=== PATIENT | male | born 1955 | race Caucasian/White ===

== ENCOUNTER 2019-02-24 09:50 | Inpatient (IN) | payer MEDICARE ==
[2019-02-24] VITALS (34 sets, daily range): BP systolic 89–213; BP diastolic 59–115
[~2019-02-24] VITALS: Ht 177.8 cm; Wt 75.3 kg
--- NOTE | ~2019-02-24 | PROC ---
[address] [address] PROCEDURE REPORT Name: YOON FAUST Room: [address] IN .R.#: [id number] Admission: 02/24/19 Attend Phys: Flor Bailey Discharge: 02/26/19 Date of : 53 Report #: [id number] THIS REPORT FOR: //name// For GI report, please see the Provation report in Perceptive 7 content. By: 1546Medical Records Staff DINA /AMY
[~2019-02-24 09:50] MED LIST: CARDIZEM30 MG; DOXYCYCLINE 10100 MG PO; KEFLEX500 MG PO; NORCO 5-325 TA1 EACH PO
[2019-02-24 12:05] LABS: ABSOLUTE EOSINOPHILS 0.2 thou/uL (0.0-0.7); ABSOLUTE LYMPHOCYTES 1.6 thou/uL (0.8-5.3); ABSOLUTE MONOCYTES 0.6 thou/uL (0.0-1.2); BASOPHILS 0.3 %; EOSINOPHILS 3.3 %; HEMATOCRIT 38.8 % (42.0-52.0); MCH 26.4 pg (26.0-34.0); MCHC 33.4 g/dL (28.0-37.0); MCV 79.3 fL (80.0-100.0); MONOCYTES 7.7 %; NUCLEATED RBCS 0 /100WBC; PLATELET COUNT* 196 thou/uL (150-400); POLYS 67.7 %; WBC 7.4 thou/uL (4.0-11.0)
[2019-02-24 12:15] LABS: APTT 34.5 Seconds (25.0-31.3); INR 1.1; PROTIME 10.9 Seconds (9.20-11.50)
[2019-02-24 12:24] LABS: CREATININE 0.8 mg/dL (0.6-1.3); POTASSIUM 3.8 mmol/L (3.5-5.1)
[2019-02-24 12:34] LABS: ALBUMIN 3.3 g/dL (3.4-5.0); TOTAL BILIRUBIN 0.5 mg/dL (<0.1-1.0); TROPONIN-I LEVEL 0.1 ng/mL (<0.06)
--- NOTE | 2019-02-24 17:25 | EKG ---
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
[2019-02-25] VITALS (22 sets, daily range): BP systolic 87–114; BP diastolic 56–77
[2019-02-25 04:38] LABS: CHOLESTEROL 145 mg/dL (<200); HDL CHOLESTEROL 34 mg/dL (>40); LDL CHOLESTEROL 102 mg/dL (<100); TC:HDL 4.3 Ratio (Not establshd); TRIGLYCERIDE 49 mg/dL (<150); VLDL 10 mg/dL (<40)
[2019-02-25 04:41] LABS: SERUM ASSESSMENT CLEAR; TROPONIN-I LEVEL 4.92 ng/mL (<0.06)
[2019-02-25 07:48] LABS: ABSOLUTE EOSINOPHILS 0.3 thou/uL (0.0-0.7); ABSOLUTE LYMPHOCYTES 1.1 thou/uL (0.8-5.3); ABSOLUTE MONOCYTES 0.6 thou/uL (0.0-1.2); ABSOLUTE NEUTROPHILS 7.1 thou/uL (1.6-8.1); BASOPHILS 0.5 %; EOSINOPHILS 3.7 %; HEMATOCRIT 33.8 % (42.0-52.0); HEMOGLOBIN 11.2 gm/dL (14.0-18.0); LYMPHOCYTES 11.5 %; MCH 26.4 pg (26.0-34.0); MCHC 33.3 g/dL (28.0-37.0); MCV 79.5 fL (80.0-100.0); MONOCYTES 6.7 %; MPV 9.2 fl. (7.2-11.1); NUCLEATED RBCS 0 /100WBC; PLATELET COUNT* 209 thou/uL (150-400); POLYS 77.6 %; RBC 4.25 mil/uL (4.50-6.00); RDW-CV 15.9 % (10.5-14.5); WBC 9.1 thou/uL (4.0-11.0)
[2019-02-25 07:56] LABS: ALBUMIN 2.4 g/dL (3.4-5.0); CALCIUM 8.4 mg/dL (8.5-10.1); CREATININE 0.7 mg/dL (0.6-1.3); POTASSIUM 3.8 mmol/L (3.5-5.1); TOTAL BILIRUBIN 0.3 mg/dL (<0.1-1.0); TOTAL PROTEIN 6.3 g/dL (6.4-8.2)
--- NOTE | 2019-02-25 10:40 | EKG ---
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 : 1955 Requested By: Juan Pablo Obrien Order Number: [id number] Bereket MD: Garth Emmanuel Measurements Intervals [place] Rate: 68 P: 44 [place]: 172 QRS: 80 QRSD: 161 T: 53 QT: 494 QTc: 526 Interpretive Statements Sinus rhythm poor r wave progression Right bundle branch block Compared to ECG 02/24/2019 13:46:06 Sinus arrhythmia no longer present Electronically Signed On 02-25-2019 10:40:41 CDT by Garth Emmanuel [email or web address] <ELECTRONICALLY SIGNED> By: Garth Emmanuel MD, FACC 02/25/19 1040 2314 2314 Garth Emmanuel MD, [facility] /EPI
--- NOTE | 2019-02-25 10:42 | EKG ---
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1955 Requested By: Garth Emmanuel Order Number: [id number] Bereket MD: Garth Emmanuel Measurements Intervals [place] Rate: 63 P: 41 [place]: 169 QRS: 85 QRSD: 151 T: 111 QT: 501 QTc: 513 Interpretive Statements Sinus rhythm Right bundle branch block Inferior infarct, old Anterolateral infarct, age indeterminate Baseline wander in lead(s) V2 Compared to ECG 02/24/2019 13:46:06 Sinus arrhythmia no longer present Myocardial infarct finding still present Electronically Signed On 02-25-2019 10:42:48 CDT by Garth Emmanuel [email or web address] <ELECTRONICALLY SIGNED> By: Garth Emmanuel MD, FAC 02/25/19 1042 0327 0327 Garth Emmanuel MD, [facility] /EPI
--- NOTE | 2019-02-25 17:26 | CARD ---
[address] [address] CARDIAC CATH REPORT Name: CHRISTIANNEYOON VALLES Room: [address] IN [facility]#: [id number] Admission: 02/24/19 Attend Phys: Flor Bailey Discharge: Date of : 53 Report #: [id number] THIS REPORT FOR: //name// APPROVED REPORT Study performed: 02/24/2019 09:47:38 Patient Details Patient Status: In-Patient Room #: The patient is a 63 year-old male Event Personnel Yifan Berry Electromatic Typist, Ashanti Clarke RN Forest Patrolman, Edwin Farnsworth CAUSTIC PUMP OPERATOR Scrub, Guillermina Moore RTR Monitor, Marissa Cox RTR Scrub, Garth Emmanuel Pockets And Pieces Necktie Operator, Chayito Woods RN Monitor Procedures Performed Art Access - R femoral artery* Left Heart Cath w/or w/o Coronaries LHC PTCA Single Vessel LAD Indication Abnormal ECG, Chest pain Admission/Lab Medications/Medications given during procedure Glycoprotein IllbIlla Inhibitors, Heparin Unfract., Midazolam (Versed) IV 1 mg, Lidocaine Subcut 10 ml, Heparin IV 9, Aggrastat Unknown 11 ml000 units Procedure Narrative The patient was brought emergently to the Cardiac Catheterization Laboratory and was prepped and draped in a sterile manner. The right femoral was infiltrated with 1% Lidocaine subcutaneous anesthesia. A 6Fr x 12cm Ultimum sheath was inserted into the right femoral artery. Coronary angiography was performed using coronary diagnostic catheters. The right coronary system was accessed and visualized with a 6F JR4 catheter. The left coronary system was accessed and visualized with a 6F JL4 catheter. The left ventricle was accessed and visualized with a 6F Pigtail catheter. Left ventricular/Aortic Valve gradient assessed via catheter pullback. Left ventriculogram was performed in HUFF projection. Closure device was deployed with a 6 Fr Angioseal STS 6Fr. The patient tolerated the procedure well and there were no complications associated with the procedure. [place] [address] CARDIAC CATH REPORT Name: YOON FAUST Room: [address]#: [id number] Admission: 02/24/19 Attend Phys: Flor Baiely Discharge: Date of : 53 Report #: [id number] Intraoperative Conscious Sedation Sedation start time: 10:06 Case end Time: 10:45 Versed 1 mg Fluoro Time: 7.5 minutes Dose: DAP [id number] cGycm2 1898 mGy Contrast Type and Amount: Visipaque 210 ml, Omnipaque 50 ml Coronary Angiography The patient's coronary anatomy is right dominant. Diagnostic Cath Left Main Free of significant disease and trifurcates into the LAD, intermediate ramus and circumflex branches. LAD Mild plaquing proximally. There is approximately an 80% narrowing in the mid to distal LAD. Distal to this narrowing the vessel appears small in caliber. An apical portion of the LAD appears to be fed by a septal mud jack operator either by anomalous anatomy or collateral flow. Diagonal 1 Moderate size vessel that is free of significant disease. Diagonal 2 Moderate to large size branching vessel is free of significant disease. Circumflex Mildly plaqued in the proximal portion. Distally the circumflex appears to terminate in a single large obtuse marginal branch. OM1 Gabby branched and minimally plaqued. Right Coronary Large dominant vessel that appears to be mildly ectatic from the proximal to distal portion. No hemodynamically significant stenoses were noted. R PDA Small in caliber and free of significant disease. RPLV Gabby branched. Mildly ectatic. Free of hemodynamically significant stenoses. Ramus Small in caliber with marginal distribution. Free of significant disease. Left Ventriculography The left ventricular ejection fraction is estimated to be 20-25%. Left ventricular wall motion abnormalities are present. There is no mitral insufficiency. akinesis of [place] [address] CARDIAC CATH REPORT Name: YOON FAUST Room: [address] IN .R.#: [id number] Admission: 02/24/19 Attend Phys: Flor Bailey Discharge: Date of : 53 Report #: [id number] Hemodynamics The aortic pressure is 118/68 mmHg with a mean of 89 mmHg. The left ventricular pressure is 114/10 mmHg with a mean of mmHg. The left ventricular end diastolic pressure is 14 mmHg. There was no gradient across the aortic valve upon pullback. Pullback from the left ventricle to the aorta revealed no gradient across the aortic valve. PCI Technique Lesion Anticoagulation was achieved with Heparin. bolus of iv aggrastat given Percutaneous coronary intervention was performed on the mid left anterior descending artery segment. The lesion stenosis prior to intervention was 100% with AMAURY 0 flow. A 6F XB LAD 4.0 Guide Catheter was used to engage the lm ostium. A BMW 190cm Interventional Guidewire was used to cross the lesion. BALLOON DILATION A Balloon catheter Mini Trek RX 2.0 X 8 was inserted and inflated up to 8.00atm for 17seconds. Repeat angiography revealed the following post-dilatation results: 100 stenosis. There was no significant reperfusion despite PTCA. It appeared that the occlusion of the mid lad represented a chronic occlusion that filled retrograde by birdging collaterals. Further attempts at reperfusion were abandoned. Final angiography reveals 100 % stenosis with AMAURY 0 flow. Conclusion 1. chronic occlusion of the mid lad that filled retrograde by bridging collaterals. 2. LVEF 20-25% Diagnostic Cath Approved by: Yifan Berry MD Date/Time: <ELECTRONICALLY SIGNED> By: Garth Emmanuel MD, FACC 02/25/191725 25 25Damateo Emmanuel MD, FACC /INF
--- NOTE | 2019-02-25 18:42 | H ---
[address] [address] HISTORY AND PHYSICAL Name: CHRISTIANNEYOON VALLES Room: [address] IN .#: [id number] Admission: 02/24/19 Attend Phys: Flor Bailey Discharge: Date of : 53 Report #: [id number] THIS REPORT FOR: //name// CC: Cy Rodriguez INDICATION: Acute anterolateral infarct. HISTORY OF PRESENT ILLNESS: The patient is a very pleasant 63-year-old gentleman who reports a history of a hole in his heart, likely a PFO. He had no intervention for this. This morning, while helping his to the car on the way to the hospital for her shortness of breath, he developed midsternal chest discomfort and shortness of breath. EMS was summoned. Initial EKG shows anterolateral infarct. He denies any prior history of coronary artery disease. Risk factors include hypertension and possible dyslipidemia. He is a nonsmoker. The pain has been persistent, midsternal, radiating to the left shoulder area. He has had no diaphoresis or nausea. He did have shortness of breath with the episode. He is without other complaint at this time. PAST MEDICAL HISTORY: 1. Hypertension. 2. Possible dyslipidemia. ALLERGIES: PENICILLIN. HOME MEDICATIONS: Keflex 500 mg q.6 hours, diltiazem 30 mg daily, doxycycline 100 mg b.i.d., hydrocodone/acetaminophen 5/325 q. 6 hours p.r.n. SOCIAL HISTORY: He is a nonsmoker. He does not drink alcohol. FAMILY HISTORY: Noncontributory. The patient's brother had rheumatic heart disease. PHYSICAL EXAMINATION: VITAL SIGNS: Blood pressure is 129/88, pulse 102 and regular. GENERAL: This is a pleasant gentleman who appears to be in mild distress from midsternal chest discomfort. HEENT: Head is normocephalic, atraumatic. Extraocular muscles intact. Mucous membranes moist. NECK: Shows no jugular venous distention. CHEST: Reveals clear lung castaneda. CARDIOVASCULAR: Reveals regular rhythm without gallop or murmur. ABDOMEN: Reveals normal bowel sounds. The abdomen is soft, nontender. EXTREMITIES: Shows no edema. Peripheral pulses are 2+ and easily palpable. SKIN: [place] [address] HISTORY AND PHYSICAL Name: YOON FAUST Room: [address]#: [id number] Admission: 02/24/19 Attend Phys: Flor Bailey Discharge: Date of : 53 Report #: [id number] LABORATORY DATA: A 12-lead EKG shows acute anterolateral ST segment elevation consistent with acute ST elevation myocardial infarction. IMPRESSION AND RECOMMENDATIONS: 1. Acute anterolateral infarct. The patient will be brought to the cardiac catheterization lab for urgent coronary angiography and intervention. Further treatment pending results of that study. 2. Hypertension. We will adjust antihypertensive medications at the completion of his intervention. 3. Probable hyperlipidemia. We will check fasting lipid profile and treat accordingly. <ELECTRONICALLY SIGNED> By: Yifan Berry MD, FACC 02/25/19 1842 1007 1021Yifan Berry MD, FACC /nt
[2019-02-26 04:00] VITALS: BP 90/54
[2019-02-26 07:30] VITALS: BP 113/72
[2019-02-26 12:46] VITALS: BP 110/70
[2019-02-26] MEDS ORDERED: ASPIR 8181 MG PO (15:48)
[2019-02-26] MEDS ORDERED: CARVEDILOL3.125 MG PO (16:01)
[2019-02-26] MEDS ORDERED: COZAAR 25 MG TA25 M2 PO (16:09)
[2019-02-26] MEDS ORDERED: LIPITOR 40 MG T40 M1 PO (16:09)
[2019-02-26] MEDS ORDERED: SPIRONOLACTONE25 M1 PO (16:10)
[2019-02-26 16:35] VITALS: BP 110/70
[2019-03-04 10:14] LABS: M-SPIKE Note: g/dL (Not Observed)
--- NOTE | 2019-03-10 12:59 | CON ---
[address] [address] CONSULTATION Name: CHRISTIANNEYOON Estefany Room: [address] IN M.R.#: [id number] Admission: 02/24/19 Attend Phys: Flor Bailey Discharge: 02/26/19 Date of : 53 Report #: [id number] THIS REPORT FOR: //name// CC: Cy Chua DO Yifan Jamal Obrien DATE OF SERVICE: 02/26/2019 ONCOLOGY CONSULTATION NOTE HISTORY OF PRESENT ILLNESS: The patient is being seen in consultation at the request of Dr. Coleman because he was found to have incidental suspicious mixed lytic and blastic lesions involving the sacrum and innominate bones on the CT scan that was done on 02/25/2019. The CT scan was ordered as part of a workup for new-onset shortness of breath. CT scan of the chest did not show any bony lesions. The patient has a past history of myocardial infarctions in approximately 2012 or 2013. He presented then with supraventricular tachycardia and was found to have evidence of [place], but it was not clear to the patient nor is he able to tell me now whether it was thought to be a new infarct in 2012 or whether it was an old one. The patient does have a history of hypertension for the past 7-8 years and possible dyslipidemia. During this hospital stay, he was taken to coronary angiography where left ventricular ejection fraction was estimated at 20-25%. He underwent balloon dilatation, but there was no significant reperfusion despite PTCA and appeared that the occlusion of mid LAD represents a chronic occlusion that filled retrograde by bridging collaterals, according to the dictated report by Dr. Emmanuel. The patient was placed on aspirin, but he was not placed on Plavix post-procedure. He is now asymptomatic, and I am told by the nurse taking care of him that there is consideration for sending him out of the hospital to continue workup in the outpatient setting. The patient has a history of back pain in the distant past. Apparently, he had some abnormality in the , and it may have been precipitated by an injury. He has had chronic back pain intermittently ever since that time. In the past, also, he has had chronic back pain diagnosed in the [facility] system, and it is the patient's recollection that he did have radiographs done, but he does not remember where or when or what radiographs were done. The patient does not have any pain in the sacral area. Today, he pointed to the upper lumbar/lower thoracic area as the site for his pain. The patient has never had any prostate problems, and he could not remember having digital rectal examination except when he was evaluated at [place]. He does have chronic nocturia (for the past 6 months), typically 3-4 times per day, but he denies any other urinary symptoms. [place] [address] CONSULTATION Name: CHRISTIANNEYOON VALLES Room: [address] IN [facility].#: [id number] Admission: 02/24/19 Attend Phys: Flor Bailey Discharge: 02/26/19 Date of : 53 Report #: [id number] loss of 50-60 pounds over the past year. He has a decreased appetite, typically eats 2-3 meals per day, but no snacks and he thought his weight loss was due to having to work so hard to take care of his who is virtually blind. The patient has not had any bleeding from any site or major infections, but he did take some saved up antibiotics because of dental pain recently (self-prescribed). He denies recurring fevers, rigors, or drenching sweats. Two medications on his home medication list include Keflex and doxycycline. 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 PAST MEDICAL HISTORY: In 2009, umbilical hernia and right inguinal hernia repair at the [facility] in [place]; in 2012, SVT and discovery of myocardial infarction (new?); hypertension times past 7-8 years; possible dyslipidemia. 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 SOCIAL HISTORY: The patient is a former smoker, he smoked for 20 years and he typically smoked 1 pack of cigarettes per day, but he stopped years ago. He does not drink any alcohol. He is . FAMILY HISTORY: The patient had 2 brothers and 2 sisters. One of the sisters from lung cancer and was a ____. REVIEW OF SYSTEMS: Positive for occasional headaches (the patient denied this, but his and daughter both remembered that he had been complaining of headaches and he points to the frontal area). He denies any sudden episodes of visual disturbance, diplopia, shimmering lights. No history of migraine headaches. He said he has had episodes of sinusitis in the past, most recently requiring antibiotics approximately 2 years ago. He denies any recurring sores in the mouth. No swallowing difficulties. No recent nausea or vomiting. His usual bowel movement pattern prior to coming into the hospital was 1 time per day. He has never had colonoscopy. He is right handed, has arthralgias in his back and both shoulders and to a lesser degree in his neck and he has limited range of motion there. Denies past history of skin cancer, malignant moles. He does have a chronic cough most days out of the month. Sometimes it is clear sputum, other times, it is yellow or green. He had hemoptysis one time approximately 2 years ago. He has no areas of constant numbness or tingling in the extremities. PHYSICAL EXAMINATION: GENERAL: Reveals a pleasant gentleman in no acute distress. His came into the room part way into the examination led by their daughter. His is blind and needed her assistance. and the daughter both added limited information to the questions that I asked him. His reports were not very accurate. HEENT: He had dilated pupils 4 mm and there was left eye eversion. There was no ptosis or proptosis. Sclerae were nonicteric and nonerythematous. Nasal passage was clear. The oropharynx reveals poor dentition [place] [address] CONSULTATION Name: CHRISTIANNE,MARK Estefany Room: [address] IN [facility]#: [id number] Admission: 02/24/19 Attend Phys: Flor Bailey Discharge: 02/26/19 Date of : 53 Report #: [id number] teeth. His tongue was normally papillated and protruded midline on command. There were no ulcers or masses. Voice quality was somewhat raspy. NECK: Carotid upstrokes were normal without thrills. He had no cervical lymphadenopathy and there was no JVD or thyromegaly. There was no supraclavicular, infraclavicular, or axillary adenopathy. Posterior thorax did not reveal any worrisome skin lesions or subcutaneous nodules. CHEST: His cough was clear on command. There were no rales or wheezes in the bases, but he did have diminished air movement sounds in the right lower castaneda. Anteriorly, he had no spider telangiectasias over the upper anterior chest. There was no gynecomastia. CARDIAC: Rate and rhythm are normal without murmur. ABDOMEN: Examined while he was lying in the supine position and he had no tenderness, distention, masses, or ascites. No detectable hepatosplenomegaly tested by palpation or percussion. EXTREMITIES: Lower extremities did not reveal any pitting edema, no purpura. Upper extremities did not reveal any acrocyanosis, palmar erythema, or clubbing. MEDICAL DATA: From 02/25/2019, CT scans of the abdomen without and pelvis with contrast showed small bilateral pleural effusions, mild atelectasis, spleen at the upper limits of normal in size measuring 12.7 x 6.3 x 14 cm, small cyst in the upper portion of the right kidney measuring 3.5 x 3 cm transversely, left kidney was normal. He had linear calcifications in both upper portions of the right innominate bones. He had a dominant solid mass that is present in the left innominate bone, findings were suspicious for metastatic disease such as prostate cancer. From 02/24/2019, I reviewed the cardiac catheterization report (see above). Note that the patient had decreased left ventricular ejection fraction estimated at 20-25% and there was akinesis of the anterolateral wall. Laboratory studies were reviewed, but did not reveal previous blood drawn for PSA or serum protein electrophoresis. Additional laboratory studies showed normal electrolytes on admission, BUN 9, creatinine 0.8, lipase 224. Liver function studies are normal. Alkaline phosphatase is normal at 115. Albumin low at 3.3, then dropped to 2.4 by yesterday. NT-proBNP was normal. Cholesterol 145, triglycerides 49, LDL cholesterol 102, HDL cholesterol 34. TSH was within the normal range of 1.721 micro international units/mL. Serum iron 25 with a TIBC of 247 giving a percent iron saturation of 10. Ferritin was 201, folate 5.5, vitamin B12 of 376. Protime was normal at 10.9 seconds with APTT prolonged slightly at 34.[address] scan of the chest with contrast did not reveal any osseous abnormalities. I personally reviewed the images in CPOE. IMPRESSION AND PLAN: The patient has relatively asymptomatic sacral lesions, even though he has chronic bone pain. He has weight loss, [place] [address] CONSULTATION Name: YOON FAUST Room: [address]#: [id number] Admission: 02/24/19 Attend Phys: Flor Bailey Discharge: 02/26/19 Date of : 53 Report #: [id number] more relevant, and it would seem unlikely that he has a metabolic bone disease, such as Paget disease or poly-osteitis cystica. It is my recommendation that PSA, serum protein electrophoresis should be drawn and then the patient could reasonably be dismissed if this was found incidentally. We will have Dr. Us follow up with him and we will probably have the radiologist review this in the presence of Dr. Us. Again, it may be useful to get outside imaging studies from previous episodes of care. <ELECTRONICALLY SIGNED> By: Micah Dhaliwal MD 03/10/19 1259 1637 2209Micah Dhaliwal MD /courtney
--- NOTE | 2019-03-11 14:47 | CON ---
[address] [address] CONSULTATION Name: CHRISTIANNEYOON Estefany Room: [address] IN .R.#: [id number] Admission: 02/24/19 Attend Phys: Flor Bailey Discharge: 02/26/19 Date of : 53 Report #: [id number] THIS REPORT FOR: //name// CC: Cy Obrien DATE OF SERVICE: 02/24/2019 REASON FOR CONSULT: Abdominal pain and weight loss of 50 pounds. HISTORY OF PRESENT ILLNESS: This is a 63-year-old male who presented to hospital with chest pain. He underwent cardiac catheterization and found to have 50% occlusion of his heart vessel, but no stenting was done. The patient has hypertension and is on amlodipine and diltiazem. He reports that in the last 6 months, he has lost 50 pounds. He is not able to eat and lost his appetite. He also used to have bowel movements 2 or 3 times a week, but now has urgency and has bowel movements every day. His stools also are loose. He denies any hematochezia or melena. The patient also denies any vomiting, but occasionally may have nausea and complains of intermittent abdominal pain. PAST MEDICAL HISTORY: Significant for history of hypertension, weight loss of 50 pounds. ALLERGIES: SIGNIFICANT TO PENICILLIN AND SULFA. MEDICATIONS: Please refer to MAR. 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 He is . Denies tobacco or alcohol use. FAMILY HISTORY: Noncontributory. PHYSICAL EXAMINATION: VITAL SIGNS: Reveals blood pressure of 113/79 and pulse is 74. ABDOMEN: Soft and nondistended, but mildly tender to palpation in the periumbilical region. The patient is on 2 liter of O2. NEUROLOGIC: The patient is alert and oriented x 3. There is no focal neurologic deficit. LABORATORY DATA: Reveal WBC of 7.4, hemoglobin 13, and platelets are 196. Troponin is ____. Liver function tests are within normal limits. Electrolytes are normal. BUN is 9 and creatinine [place] 0.8. [place] [address] CONSULTATION Name: YOON FAUST Room: [address]#: [id number] Admission: 02/24/19 Attend Phys: Flor Bailey Discharge: 02/26/19 Date of : 53 Report #: [id number] ASSESSMENT AND PLAN: The patient with significant weight loss of 50 pounds over 6 months and change in bowel habits, who has never had endoscopic evaluation. He complains of epigastric pain and early satiety. We will consider upper endoscopy and if this was negative, we will consider a gastric emptying test. I will also consider a colonoscopy to follow the EGD. We will get a cardiac clearance for endoscopic evaluations. I will also check iron study, B12 and folic acid as the patient's MCV is 79. Our imaging will include chest x-ray, CT of abdomen and pelvis with and without contrast. The patient is agreeable with plan. <ELECTRONICALLY SIGNED> By: Stanley Delgado MD 03/11/19 1447 [id number] 1910Stanley Delgado MD /nt
== END 2019-02-26 18:04 | disposition home or self-care (01) | DRG 250 ==
LOC: M.CL 09:50 → M.ERS 09:50 → M.ICU 09:57 → M.TBA-CV 09:57 → M.ICU 11:17 → M.2W 02-25 16:26
PROVIDERS: Emergency Medicine Emergency Medical Services; Internal Medicine; Internal Medicine Cardiovascular Disease; Internal Medicine Gastroenterology; Internal Medicine Hematology & Oncology; ADMIT Internal Medicine
DX: I21.09 ST elevation (STEMI) myocardial infarction involving other coronary artery of anterior wall (principal); E43 Unspecified severe protein-calorie malnutrition; I25.10 Atherosclerotic heart disease of native coronary artery without angina pectoris; I25.9 Chronic ischemic heart disease, unspecified; E78.5 Hyperlipidemia, unspecified; D50.9 Iron deficiency anemia, unspecified; R63.4 Abnormal weight loss; I25.5 Ischemic cardiomyopathy; M89.9 Disorder of bone, unspecified; I10 Essential (primary) hypertension; Z79.2 Long term (current) use of antibiotics; Z79.1 Long term (current) use of non-steroidal anti-inflammatories (NSAID); Z79.899 Other long term (current) drug therapy; Z88.0 Allergy status to penicillin; Z68.23 Body mass index [BMI] 23.0-23.9, adult; Z88.2 Allergy status to sulfonamides